=== PATIENT | female | born 1980 | race Two or more races ===

== ENCOUNTER 2018-10-23 01:23 | Emergency (ER) | payer MEDICAID ==
[~2018-10-23] VITALS: Ht 165.1 cm; Wt 89.8 kg
[~2018-10-23 01:23] MED LIST: CALC-343 PO; FERR1TAB24 PO; LORA-953 PO; OXYM-12; PREN1TAB59 PO
--- NOTE | 2018-10-23 01:50 | NUR ---
PT BIBSELF C/O COUGH AND CONGESTION X 2 DAYS. PT AOX4 RR EVEN AND UNLABORED. NO SOB NOTED. NO NVD AT THIS TIME. PT WAITING FOR MD CLANCY. NO ACUTE DISTRESS NOTED.
--- NOTE | 2018-10-23 02:54 | NUR ---
PT CLEARED FOR D/C, PT LEFT WITHOUT DISCHARGE INSTRUCTIONS.
[2018-10-23 02:55] VITALS: BP 110/68
== END 2018-10-23 02:56 | disposition home or self-care (01) ==
LOC: ER 01:26
DX: B34.9 Viral infection, unspecified (principal); G43.909 Migraine, unspecified, not intractable, without status migrainosus; R42 Dizziness and giddiness; F10.10 Alcohol abuse, uncomplicated; Y90.9 Presence of alcohol in blood, level not specified; Z98.890 Other specified postprocedural states; Z88.0 Allergy status to penicillin; Z90.49 Acquired absence of other specified parts of digestive tract
CPT/HCPCS: 82962-TC

== ENCOUNTER 2019-03-10 03:18 | Emergency (ER) | payer MEDICAID ==
[~2019-03-10] VITALS: Ht 165.1 cm; Wt 87.1 kg
--- NOTE | 2019-03-10 03:24 | NUR ---
PT BIBS. C/O "HAVING DIZZYNESS AND BENOIT PALE RECENTLY" -SOB AOX4. VSS. AMBULATORY. -NEURO DEFITICS
[2019-03-10] MEDS: IV NS 0.9% 1,000 ML BAG IV ONE (04:04)
[2019-03-10 04:13] LABS: BASOPHILS # (AUTO) 0.1 /CMM (0.0-0.2); BASOPHILS % (AUTO) 1.5 % (0.0-2.0); EOSINOPHILS % (AUTO) 0.8 % (0.0-6.0); HEMATOCRIT 35 % (33-45); HEMOGLOBIN 11.2 g/dL (11.5-14.8); LYMPHOCYTES # (AUTO) 2.1 /CMM (0.8-4.8); LYMPHOCYTES % (AUTO) 28.3 % (20.0-44.0); MEAN CORPUSCULAR HGB CONC 32 g/dl (31.0-36.0); MEAN CORPUSCULAR VOLUME 80 fL (82-100); MONOCYTES # (AUTO) 0.6 /CMM (0.1-1.30); MONOCYTES % (AUTO) 8.3 % (2.0-12.0); NEUTROPHILS # (AUTO) 4.6 /CMM (1.8-8.9); NEUTROPHILS % (AUTO) 61.1 % (43.0-81.0); PLATELET COUNT (AUTO) 345 /CMM (150-450); RED BLOOD CELL COUNT(AUTO) 4.38 MIL/uL (4.0-5.2); WHITE BLOOD COUNT (AUTO) 7.5 K/uL (4.3-11.0)
[2019-03-10 04:19] LABS: CALCIUM, SERUM 9.4 mg/dL (8.5-10.1); CARBON DIOXIDE 28 mmol/L (21-32); CHLORIDE 104 mmol/L (98-107); CREATININE 0.8 mg/dL (0.6-1.3); GLUCOSE 80 mg/dL (74-106); POTASSIUM 3.2 mmol/L (3.5-5.1); SODIUM SERUM 139 mmol/L (136-145); UREA NITROGEN, BLOOD 8 mg/dL (7-18)
[2019-03-10 04:25] LABS: ALANINE AMINOTRANSFERASE 19 U/L (12-78); ALBUMIN 3.8 g/dL (3.4-5.0); ALKALINE PHOSPHATASE 90 U/L (46-116); ASPARTATE AMINOTRANSFERASE 14 U/L (15-37); BILIRUBIN,DIRECT 0.1 mg/dL (0.0-0.2); BILIRUBIN,TOTAL 0.2 mg/dL (0.2-1.0); TOTAL PROTEIN, SERUM 8.2 g/dL (6.4-8.2)
[2019-03-10] MEDS ORDERED: POTASSIUM CHLORIDE 20 MEQ TAB.PRT.SR PO ONE (04:42)
[2019-03-10] MEDS: POTASSIUM CHLORIDE 20 MEQ TAB.PRT.SR PO ONE (04:53)
[2019-03-10 06:10] VITALS: BP 124/81
== END 2019-03-10 06:11 | disposition home or self-care (01) ==
LOC: ER 03:18
DX: R42 Dizziness and giddiness (principal); G43.909 Migraine, unspecified, not intractable, without status migrainosus; F41.9 Anxiety disorder, unspecified; F10.10 Alcohol abuse, uncomplicated; F17.210 Nicotine dependence, cigarettes, uncomplicated; I45.10 Unspecified right bundle-branch block; Y90.9 Presence of alcohol in blood, level not specified; Z98.890 Other specified postprocedural states; Z88.0 Allergy status to penicillin
CPT/HCPCS: 36415; 80048; 80076; 84484; 84702; 85025; 85730; 93005; 96360; 99284; J7030

== ENCOUNTER 2019-06-16 22:34 | Emergency (ER) | payer MEDICAID ==
[~2019-06-16] VITALS: Ht 165.1 cm; Wt 86.2 kg
--- NOTE | 2019-06-16 23:00 | NUR ---
PT AAOX4. AMBULATORY. BIBSELF C/O BILATERAL EAR ACHE AND SORE THROAT X3 DAYS. -FEVER. PER PATIENT "I TRIED EVERY HOME REMEDY, GARLIC, ETC." NO ACUTE DISTRESS NOTED. AWAITING MD FOR EVAL.
--- NOTE | 2019-06-16 23:17 | NUR ---
Patient discharged to home in stable condition. Written and verbal after care instructions given. Patient verbalizes understanding of instruction.
[2019-06-16 23:18] VITALS: BP 128/77
== END 2019-06-16 23:20 | disposition home or self-care (01) ==
LOC: ER 22:37
DX: H60.93 Unspecified otitis externa, bilateral (principal); G43.909 Migraine, unspecified, not intractable, without status migrainosus; F41.9 Anxiety disorder, unspecified; F17.200 Nicotine dependence, unspecified, uncomplicated; D64.9 Anemia, unspecified; Z98.890 Other specified postprocedural states; Z88.0 Allergy status to penicillin; Z79.899 Other long term (current) drug therapy

== ENCOUNTER 2019-07-15 13:56 | Emergency (ER) | payer MEDICAID ==
[~2019-07-15] VITALS: Ht 165.1 cm; Wt 88.5 kg
[2019-07-15 14:16] VITALS: BP 125/81
--- NOTE | 2019-07-15 14:36 | NUR ---
RADIOLOGY AT BEDSIDE FOR CHEST XRAY.
[2019-07-15] MEDS ORDERED: IBUPROFEN 400 MG TABLET ONE (14:39)
[2019-07-15] MEDS ORDERED: ACETAMINOPHEN ES 500 MG TABLET ONE (14:39)
--- NOTE | 2019-07-15 14:44 | NUR ---
PT REFUSED PAIN MEDS. DR ENOC HANEY.
[2019-07-15] MEDS ORDERED: IBUPROFEN 400 MG TABLET PO ONE (15:00)
[2019-07-15] MEDS ORDERED: ACETAMINOPHEN ES 500 MG TABLET PO ONE (15:00)
== END 2019-07-15 17:22 | disposition home or self-care (01) ==
LOC: ER 13:58
DX: J06.9 Acute upper respiratory infection, unspecified (principal); G43.909 Migraine, unspecified, not intractable, without status migrainosus; F41.9 Anxiety disorder, unspecified; D64.9 Anemia, unspecified; F17.210 Nicotine dependence, cigarettes, uncomplicated; Z98.890 Other specified postprocedural states; Z88.0 Allergy status to penicillin; Z79.899 Other long term (current) drug therapy
CPT/HCPCS: 71045-TC; 86403-TC; 87070-TC

== ENCOUNTER 2020-03-13 14:02 | Emergency (ER) | payer BC, MEDICAID ==
[~2020-03-13] VITALS: Ht 165.1 cm; Wt 70.3 kg
[2020-03-13 14:18] VITALS: BP 118/76
--- NOTE | 2020-03-13 15:26 | NUR ---
PATIENT A/OX4, AMBULATORY WITH STEADY GAIT, DENIES PAIN AT THIS TIME. BREATHING EVEN AND UNLABORED, NO SOB NOTED. Patient discharged to home in stable condition. Written and verbal after care instructions given. Patient verbalizes understanding of instruction.
== END 2020-03-13 15:27 | disposition home or self-care (01) ==
LOC: ER 14:14
DX: R07.89 Other chest pain (principal); R94.31 Abnormal electrocardiogram [ECG] [EKG]; G43.909 Migraine, unspecified, not intractable, without status migrainosus; R42 Dizziness and giddiness; F17.210 Nicotine dependence, cigarettes, uncomplicated; Z90.49 Acquired absence of other specified parts of digestive tract; Z98.890 Other specified postprocedural states; Z88.0 Allergy status to penicillin; Z79.899 Other long term (current) drug therapy

== ENCOUNTER 2022-07-01 07:25 | Emergency (ER) | payer BC, MEDICAID ==
[~2022-07-01] VITALS: Ht 165.1 cm; Wt 88.9 kg
[2022-07-01 07:31] VITALS: BP 152/96
[2022-07-01] MEDS ORDERED: DOXY100C2 PO (08:01)
[2022-07-01] MEDS ORDERED: IBUP-1955 PO (08:01)
--- NOTE | 2022-07-01 08:11 | NUR ---
Patient discharged to home in stable condition. Written and verbal after care instructions given. Patient verbalizes understanding of instruction.
== END 2022-07-01 08:11 | disposition home or self-care (01) ==
LOC: ER 07:25
DX: L02.811 Cutaneous abscess of head [any part, except face] (principal); G43.909 Migraine, unspecified, not intractable, without status migrainosus; F41.9 Anxiety disorder, unspecified; F17.200 Nicotine dependence, unspecified, uncomplicated; Z90.49 Acquired absence of other specified parts of digestive tract; Z88.2 Allergy status to sulfonamides; Z79.899 Other long term (current) drug therapy